=== PATIENT | female | born 1985 | race Two or more races ===

== ENCOUNTER 2020-05-04 09:36 | Inpatient (IN) ==
[2020-05-04] MEDS ORDERED: OXYTOCIN 30 UNITS/500ML NSS ONE (10:05)
[2020-05-04] MEDS ORDERED: OXYTOCIN 30 UNITS/500 ML BAG IV PRN (10:10)
[2020-05-04] MEDS ORDERED: LACTATED RINGER'S 1,000 ML IV PRN (10:10)
--- NOTE | 2020-05-04 10:16 | Delivery Summary ---
Vaginal Delivery Summary Date of Service May 04, 2020 Patient known to our practice arrived at full dilat spontaneous rupture of membranes on checking the patient had significant pain and not time for an epidural we did start an IV group B strep status was unknown at the actual time of delivery pelvic status was unknown so we did wear and 95 masks and full protective gear Patient that was then able to push and over several contractions delivered a baby in occiput anterior position this was somewhat uncontrolled but there was no nuchal cord and fluid was clear. Gentle traction no difficulties cord clamped and cut cord gases sent cord blood sent placenta removed with gentle traction there was no tearing estimated blood loss 200 mL bleeding improved after delivery of the placenta and starting of IV oxytocin sponge and instrument counts correct
[2020-05-04] MEDS ORDERED: DIPHTHERIA/TETANUS/PERTUSSIS 0.5 ML SYR/VIAL IM ONE (10:27)
[2020-05-04] MEDS ORDERED: BENZOCAINE 20% AER SPR 82.5 GM CAN EXT PRN (10:27)
[2020-05-04] MEDS ORDERED: SUPERCREAM 0.870% 15 GM JAR EXT PRN (10:27)
[2020-05-04] MEDS ORDERED: bisacodyL 10 MG SUPP PR PRN (10:27)
[2020-05-04] MEDS ORDERED: ACETAMINOPHEN 325 MG TAB PO PRN (10:27)
[2020-05-04] MEDS ORDERED: HYDROCORTISONE ACETATE 25 MG SUPP PR PRN (10:27)
[2020-05-04] MEDS ORDERED: IBUPROFEN 600 MG TAB PO ONE (10:33)
[2020-05-04 11:02] LABS: Base Excess Cord Arterial Bld -0.3 mEq/L (-9-1.8); CO2 Cord Arterial Blood 51 mmHg (39.1-73.5); HCO3 Cord Arterial Blood 26 mmol/L (19.7-28.5); PO2 Cord Arterial Blood 27 mmHg (4.1-31.7); pH Cord Arterial Blood 7.33 (7.1-7.38)
[2020-05-04 11:06] LABS: Base Excess Cord Venous Blood -1.2 mEq/L (-7.7-1.9); Cord Venous Blood HCO3 24 mmol/L (18.4-26.8); Cord Venous Blood PCO2 41 mmHg (30.4-57.2); Cord Venous Blood PO2 32 mmHg (14.1-43.3); Cord Venous Blood pH 7.38 (7.20-7.44); Oxygen Sat Cord Arterial Blood < 60.0 % (<60)
[2020-05-04 11:09] LABS: Hematocrit (blood only) 35.1 % (37-47); Mean Corpuscular Hemoglobin 22.9 pg (25-34); RDW Coefficient of Variation 15.4 % (11.5-14.5); RDW Standard Deviation 41.1 fL (36.4-46.3); Red Blood Count 4.81 M/uL (4.2-5.4); White Blood Count 4.77 K/uL (4.8-10.8)
[2020-05-04 11:16] LABS: Mean Corpuscular Hgb Conc 31.3 g/dL (32-36); Platelet Count 111 K/uL (130-400); Platelet Estimate Decreased (Normal)
[2020-05-04] MEDS: IBUPROFEN 600 MG TAB PO PRN ×3 (14:23→22:17)
[2020-05-04] MEDS: DOCUSATE SODIUM 100 MG CAP PO SCH (21:43)
[2020-05-05] MEDS: IBUPROFEN 600 MG TAB PO PRN ×2 (03:55→19:06)
[2020-05-05 06:29] LABS: Mean Corpuscular Hgb Conc 31.6 g/dL (32-36)
[2020-05-05 06:33] LABS: Hematocrit (blood only) 34.2 % (37-47); Hemoglobin 10.8 g/dL (12.0-16.0); Mean Corpuscular Hemoglobin 23.1 pg (25-34); Mean Corpuscular Volume 73.1 fL (80-100); RDW Coefficient of Variation 15.4 % (11.5-14.5); RDW Standard Deviation 40.9 fL (36.4-46.3); Red Blood Count 4.68 M/uL (4.2-5.4); White Blood Count 5.67 K/uL (4.8-10.8)
--- NOTE | 2020-05-05 06:33 | Obstetrical Progress Note ---
Date of Service <Rene Corona MD - Last Filed: 05/05/20 07:18> May 05, 2020 Assessment & Plan <Rene Corona MD - Last Filed: 05/05/20 07:18> (1) : PPD#1 Doing well, ambulating well, voiding well, tolerating oral intake. Continue routine care. After discharge will have follow-up in 6 weeks. Subjective <Rene Corona MD - Last Filed: 05/05/20 07:18> Michelle is a 34 y/o female ; PPD #1 following spontaneous vaginal delivery at 40 weeks; doing well this morning; some abdominal cramping. The patient says her pain is 9/10 at its worst but says it is well managed when she has her analgesics. Voiding well; tolerating meals overnight and able to ambulate some; some persistent spotting with some improvement this morning. Review of Systems Constitutional: denies fever, chills, sweat, headache Respiratory: denies shortness of breath, difficulty breathing Cardiac: denies chest pain, palpitations, chest pressure Breast: denies breast pain : denies dysuria Physical Exam <Rene Corona MD - Last Filed: 05/05/20 07:18> General: Alert, oriented. No acute distress. Cardiac: Regular rate and rhythm, no murmurs/rubs/gallops. Respiratory: Clear to auscultation bilaterally a/p, no wheezes/rales/rhonchi. No increased work of breathing. Symmetrical chest rise. No respiratory distress. Abdomen: Soft, nontender, nondistended. Bowel sounds present. Uterus: Uterine fundus firm, palpable 1cm below umbilicus. Lower Extremities: No lower extremity edema or swelling. No deep calf pain. Massimo's negative bilaterally. Results & Data <Rene Corona MD - Last Filed: 05/05/20 07:18> Vital Signs (Past 12 Hours) Vital Signs Temp Pulse Resp BP Pulse Ox 05/05/20 04:00 36.6 C 86 20 106/69 98 05/05/20 00:40 36.6 C 71 18 111/74 99 05/04/20 20:00 36.5 C 86 16 126/75 98 <J. Luis Mario Alberto, MD, FACOG - Last Filed: 05/05/20 07:52> Co-Signing Physician Notes Resident Physician Supervision Note: I was present with Dr. López during the history and exam. I discussed the case with the resident and agree with the findings and plan as documented in the note. Any exceptions or clarifications are listed here: [None] Documented By: Kym Llanes MD, FACOG Resident Activity Tracking <Rene Corona MD - Last Filed: 05/05/20 07:18> Resident Involvement: Resident Care Provided Care Provided: OB Delivery
[2020-05-05 06:55] LABS: Platelet Count 110 K/uL (130-400)
[2020-05-05 06:56] LABS: Platelet Estimate Decreased (Normal)
[2020-05-05] MEDS: DOCUSATE SODIUM 100 MG CAP PO SCH ×2 (07:48→21:40)
[2020-05-05] MEDS ORDERED: PRENATAL VITAMIN 1 TAB PO SCH (08:00)
[2020-05-05] MEDS ORDERED: bisacodyL 5 MG TABEC PO SCH (20:00)
== END 2020-05-05 21:55 | disposition home or self-care (01) | DRG 807 ==
LOC: OPB 09:36 → 4S1 09:37 → 4S2 14:00